=== PATIENT | female | born 1945 | race African-American/Black ===

== ENCOUNTER → 2020-09-29 | Outpatient (CLI) | payer MEDICARE ==
--- NOTE | 2020-09-29 17:37 | RAD ---
EXAM: XR CHEST 2V 09/29/2020 10:35 AM CLINICAL INDICATION: Shortness of breath COMPARISON: Chest radiograph 12/01/2016 TECHNIQUE: PA and lateral views of the chest FINDINGS: The heart and mediastinum are normal. The lungs are well-expanded expanded. There are some ill-defined opacities in the right apex. The left lung is clear. No pleural effusion or pneumothorax . There is no acute osseous abnormality. Mild thoracic degenerative disc disease. Cholecystectomy cli ps are noted. IMPRESSION: Ill-defined opacities in the right apex suspicious for pneumonia. Recommend follow-up im aging to ensure resolution. Electronically signed by: Amanda Almendarez MD (09/29/2020 5:35 PM) [id number]
== END ==
LOC: RAD 10:25
PROVIDERS: ATTEND Internal Medicine Pulmonary Disease
DX: R06.02 Shortness of breath (principal); Z90.49 Acquired absence of other specified parts of digestive tract
CPT/HCPCS: 71046

== ENCOUNTER → 2021-04-20 | Outpatient (CLI) | payer MEDICARE | LOC: LAB 12:24 | PROVIDERS: ATTEND Internal Medicine Pulmonary Disease | DX: D86.0 Sarcoidosis of lung (principal) | CPT/HCPCS: 36415; 82164 ==

== ENCOUNTER → 2021-06-17 | Outpatient (CLI) | payer MEDICARE ==
--- NOTE | 2021-06-17 10:18 | KCIC ---
EXAM: DUAL ENERGY X-RAY ABSORPTIOMETRY (DEXA). HISTORY: Postmenopausal screening. FINDINGS: The lowest measured T-score is left hip in the -3.1, based on a bone mineral density of 0.5 60 g/cm^2. Refer to the worksheets for full detail. No comparison examinations are available. IMPRESSION: 1. Osteoporosis. Bone mineral density yields a T-score of -2.5 or less. Fracture risk is high. 2. FRAX report: Not calculated. METHODOLOGY: Dual energy x-ray absorptiometry was performed to measure bone mineral density. The foll owing analysis is based on the 2019 Official Positions of the International Society for Clinical Dens itometry: Measurements of the hips and the average of L1-L4 are preferred. When the spine and/or hip cannot be feasibly measured or interpreted, or in the setting of hyperparathyroidism, distal radial bone minera l density may be measured. The lumbar spine T-score is based on the average bone mineral density of L1-L4. In the setting of art ifact or anatomic abnormality, some lumbar levels may be excluded, and the remaining levels used for calculation. A single lumbar level is not used for diagnosis, and if only a single level is available for assessment, another anatomic site will be used to assign a diagnosis. The hip T-score is based on the bone mineral density measurement of the femoral neck or total proxima l femur of either side, whichever is lowest. Bilateral mean values are not used for diagnosis. The forearm T-score is derived from 33% of the distal radius of the nondominant forearm. Electronically signed by: Nallely Krueger MD (06/17/2021 10:15 AM) [id number]
--- NOTE | 2021-06-17 16:47 | KCIC ---
BILATERAL SCREENING MAMMOGRAM, 3-D History: Routine screening. Comparison: None. Interpreted as new baseline examination. Technique: MLO and CC digital tomosynthesis (3D) images obtained. Radiologist reviewed these images on dedicated workstation. Findings: Breast Tissue Density C : The breasts are heterogeneously dense, which may obscure small masses. Arterial and nonarterial calcifications are noted. There is a possible lobular mass in the lower inner right breast near the 5:00 A position. There are no suspicious microcalcifications or architectural distortion. IMPRESSION: Possible mass of the lower inner anterior right breast. Recommend right breast ultrasound. BI-RADS Category 0: Incomplete: Need additional imaging evaluation. The images were reviewed with computer-aided detection. Patient information is entered into reminder system with a target [facility] date [facility] Mammography is the most sensitive method for finding small breast cancers, but it does not detect the m all and is not a substitute for careful clinical examination. A negative mammogram does not negate a clinically suspicious finding and should not result in delay in biopsying a clinically suspicious a bnormality. "Our facility is accredited by the [employer] Mammography [employer]." Electronically signed by: Lucas Wright MD (06/17/2021 4:45 PM) [id number]
== END ==
LOC: KCIC MAMMO 09:10
PROVIDERS: ATTEND Internal Medicine
DX: Z12.31 Encounter for screening mammogram for malignant neoplasm of breast (principal); M81.8 Other osteoporosis without current pathological fracture; Z78.0 Asymptomatic menopausal state
CPT/HCPCS: 77063; 77067; 77080

== ENCOUNTER → 2021-07-07 | Outpatient (CLI) | payer MEDICARE ==
--- NOTE | 2021-07-07 09:48 | KCIC ---
Right breast ultrasound: Reason for examination: Parenchymal asymmetry on screening mammogram. Comparison is made to mammographic exam dated 06/17/2021. Ultrasound examination of the right breast and axilla was performed. No discrete cystic or solid nodules or architectural distortions are seen. In the area of mammographi c concern, there is however some dense fibroglandular tissue. No abnormal appearing lymph nodes are s een in the axilla. IMPRESSION: No focal abnormality seen in the right breast sonographically. Recommend 6 month follow-up with right breast mammogram to verify stability of this tissue. BI-RADS Category 3: Probably Benign. "Our facility is accredited by the [employer] Mammography Program." This patient's information has been entered into a reminder system for the patient to be notified wit h the results of her examination and a target date for the next mammogram. Electronically signed by: Meeta Martinez MD (07/07/2021 9:46 AM) [id number]
== END ==
LOC: KCIC US 09:05
PROVIDERS: ATTEND Internal Medicine
DX: R92.8 Other abnormal and inconclusive findings on diagnostic imaging of breast (principal)
CPT/HCPCS: 76641